=== PATIENT | female | born 1935 | race Caucasian/White ===

== ENCOUNTER 2017-10-01 09:54 | Emergency (ER) | payer MEDICARE ==
[2017-10-01] MEDS ORDERED: Lidocaine 1% 20 ML MDV ONE (10:27)
--- NOTE | 2017-10-01 12:08 | RAD ---
RIGHT HAND RADIOGRAPHS 3 VIEWS: Date: 10/01/17 PROVIDED CLINICAL HISTORY: Right fifth finger injury. FINDINGS: Degenerative changes are seen. There is no evidence for fracture or other acute osseous abnormality. Alignment appears anatomic. Joint spaces appear preserved. IMPRESSION: No evidence for an acute osseous abnormality. If there is persistent clinical concern, conservative m anagement and follow-up imaging are advised. POS: [facility]
== END 2017-10-01 11:05 | disposition home or self-care (01) ==
LOC: NAV ERS 09:54
DX: S61.216A Laceration without foreign body of right little finger without damage to nail, initial encounter (principal); W23.0XXA Caught, crushed, jammed, or pinched between moving objects, initial encounter
CPT/HCPCS: 12031; J2001